=== PATIENT | male | born 1945 | race Caucasian/White ===

== ENCOUNTER 2019-05-18 14:21 | Emergency (ER) | payer MEDICARE, BC ==
[~2019-05-18] VITALS: Ht 172.7 cm; Wt 79.0 kg
[2019-05-18 15:15] LABS: BASOPHILS % (AUTO) 0.5 % (0-1); EOSINOPHILS # (AUTO) 0.1 X10'3 (0-0.9); EOSINOPHILS % (AUTO) 1.3 % (0-6); HEMOGLOBIN 16.5 g/dl (14.0-17.9); LYMPHOCYTES # (AUTO) 1.6 X10'3 (1.1-4.8); MEAN CORPUSCULAR HEMOGLOBIN 31.5 PG (27.0-31.0); MEAN CORPUSCULAR HGB CONC 34.4 g/dL (33.0-36.5); MEAN CORPUSCULAR VOLUME 91.4 FL (78-98); MONOCYTES # (AUTO) 1.3 X10'3 (0-0.9); MONOCYTES % (AUTO) 17.7 % (2-12); NEUTROPHILS # (AUTO) 4.2 X10'3 (1.8-7.7); NEUTROPHILS % (AUTO) 58.5 % (42-75); PLATELET COUNT 172 X10'3 (140-440); RED BLOOD COUNT 5.25 X10'6 (4.70-6.10); RED CELL DISTRIBUTION WIDTH 13.7 % (11.5-14.5); WHITE BLOOD COUNT 7.2 X10'3 (4.5-11.0)
[2019-05-18 15:32] LABS: ALANINE AMINOTRANSFERASE 25 U/L (12-78); ALBUMIN 4.1 G/DL (3.4-5.0); ALBUMIN/GLOBULIN RATIO 1.2 (1.1-1.5); ALKALINE PHOSPHATASE 52 IU/L (46-116); ANION GAP 12 (8-16); ASPARTATE AMINO TRANSFERASE 29 U/L (10-37); BILIRUBIN,TOTAL 1.5 MG/DL (0.1-1.0); BLOOD UREA NITROGEN 19 MG/DL (7-18); BUN/CREATININE RATIO 11.2 (5.4-32.0); CALCIUM 8.6 MG/DL (8.5-10.1); CHLORIDE 99 MMOL/L (99-107); GLUCOSE 105 MG/DL (70-104); MAGNESIUM 2.5 MG/DL (1.5-2.4); POTASSIUM 3.5 MMOL/L (3.5-5.1); SODIUM 135 MMOL/L (135-145); TOTAL CARBON DIOXIDE 23.8 MMOL/L (24-32); TOTAL PROTEIN 7.4 G/DL (6.4-8.2); eGFR 40 ML/MIN
[2019-05-18 16:18] LABS: CLARITY,URINE CLEAR (Clear); COLOR,URINE YELLOW (Yellow); GLUCOSE, URINE NEGATIVE (Neg); KETONES,URINE TRACE mg/dl (Neg); LEUKOCYTE ESTERASE ,URINE NEGATIVE (Neg); NITRITES, URINE NEGATIVE (Neg); OCCULT BLOOD,URINE NEGATIVE (Neg); PROTEIN,URINE TRACE mg/dl (Neg); UROBILINOGEN,URINE 0.2 E.U/dL (0.2-1.0)
[2019-05-18 16:33] LABS: UA COLLECTION TYPE CLN CATCH MIDSTREAM
[2019-05-18 16:34] LABS: BACTERIA,URINE NONE SEEN /HPF (Neg); MUCUS STRANDS FEW /LPF (Neg); RBC,URINE NONE SEEN /HPF (0-2); SQUAMOUS EPITHELIAL CELL,UR NONE SEEN /LPF (FEW); WBC,URINE NONE SEEN /HPF (0-4)
[2019-05-18 17:48] VITALS: BP 112/66
[2019-05-19] MEDS ORDERED: CYAN100070 PO (04:12)
[2019-05-19] MEDS ORDERED: MULT-1074 PO (04:12)
[2019-05-19] MEDS ORDERED: B1/B1TAB (04:12)
[2019-05-19] MEDS ORDERED: VALA100027 PO (04:12)
[2019-05-19] MEDS ORDERED: LEVO125T PO (14:05)
== END 2019-05-18 17:50 | disposition home or self-care (01) ==
LOC: ER 14:22
DX: E86.0 Dehydration (principal); R41.0 Disorientation, unspecified; L98.8 Other specified disorders of the skin and subcutaneous tissue; E07.9 Disorder of thyroid, unspecified
CPT/HCPCS: 36415; 70450; 71045; 80053; 81001; 83605; 83735; 84145; 85025; 87040; 93005; 99284

== ENCOUNTER 2019-05-19 01:33 | Inpatient (IN) | payer MEDICARE, BC ==
[~2019-05-19] VITALS: Ht 172.7 cm; Wt 81.8 kg
[2019-05-19 02:47] LABS: BASOPHILS % (AUTO) 0.5 % (0-1); EOSINOPHILS # (AUTO) 0.2 X10'3 (0-0.9); EOSINOPHILS % (AUTO) 2.2 % (0-6); HEMATOCRIT 46.4 % (42.0-52.0); HEMOGLOBIN 15.8 g/dl (14.0-17.9); LYMPHOCYTES # (AUTO) 1.3 X10'3 (1.1-4.8); LYMPHOCYTES % (AUTO) 18.2 % (21-51); MEAN CORPUSCULAR HEMOGLOBIN 31.4 PG (27.0-31.0); MEAN CORPUSCULAR VOLUME 92.3 FL (78-98); MONOCYTES # (AUTO) 1.1 X10'3 (0-0.9); MONOCYTES % (AUTO) 15.9 % (2-12); NEUTROPHILS # (AUTO) 4.4 X10'3 (1.8-7.7); NEUTROPHILS % (AUTO) 63.2 % (42-75); PLATELET COUNT 161 X10'3 (140-440); RED BLOOD COUNT 5.03 X10'6 (4.70-6.10); RED CELL DISTRIBUTION WIDTH 13.7 % (11.5-14.5); WHITE BLOOD COUNT 6.9 X10'3 (4.5-11.0)
--- NOTE | 2019-05-19 02:53 | NUR ---
PT DAUGHTER FANNYRACEHLCICI IN PT "SHINGLE MEDICATIONS" IN PLASTIC [place]AGGIE AND DOES NOT KNOW WHAT THE NAME IS. IDENTIFIED THE DRUG VALCYCLOVIR AND NOTIFIED AMNA RICH
[2019-05-19 03:05] LABS: ALANINE AMINOTRANSFERASE 24 U/L (12-78); ALBUMIN 4.1 G/DL (3.4-5.0); ALBUMIN/GLOBULIN RATIO 1.3 (1.1-1.5); ALKALINE PHOSPHATASE 51 IU/L (46-116); ANION GAP 11 (8-16); ASPARTATE AMINO TRANSFERASE 28 U/L (10-37); BILIRUBIN,TOTAL 1.4 MG/DL (0.1-1.0); BLOOD UREA NITROGEN 22 MG/DL (7-18); BUN/CREATININE RATIO 14.4 (5.4-32.0); C-REACTIVE PROTEIN 0.25 MG/DL (0.0-0.5); CALCIUM 8.3 MG/DL (8.5-10.1); CHLORIDE 100 MMOL/L (99-107); CREATININE 1.53 MG/DL (0.60-1.10); GLUCOSE 109 MG/DL (70-104); POTASSIUM 3.7 MMOL/L (3.5-5.1); SODIUM 135 MMOL/L (135-145); TOTAL CARBON DIOXIDE 24.2 MMOL/L (24-32); TOTAL PROTEIN 7.3 G/DL (6.4-8.2); eGFR 45 ML/MIN
[2019-05-19] MEDS ORDERED: acetaminophen 325mg tablet PO ONE (03:50)
[2019-05-19] MEDS ORDERED: VALA100027 PO (04:12)
[2019-05-19] MEDS ORDERED: MULT-1074 PO (04:12)
[2019-05-19] MEDS ORDERED: B1/B1TAB (04:12)
[2019-05-19] MEDS ORDERED: CYAN100070 PO (04:12)
[2019-05-19] MEDS ORDERED: methylPREDNISolone sod succ 125mg/2ml vial IV STA (04:38)
[2019-05-19] MEDS ORDERED: ondansetron/PF 4mg/2ml inj IV PRN (04:40)
[2019-05-19] MEDS ORDERED: acetaminophen 325mg tablet PO PRN ×2 (04:40)
[2019-05-19] MEDS ORDERED: HYDROcodone/acetaminophen 5mg/325mg tablet PO PRN (04:40)
[2019-05-19] MEDS ORDERED: magnesium Cl slow-release 64mg tablet PO PRN (04:40)
[2019-05-19] MEDS ORDERED: potassium CL 10mEq/100ml bag 100 ML IV PRN ×2 (04:40)
[2019-05-19] MEDS ORDERED: HYDROcodone/acetaminophen 10/325mg tab PO PRN (04:40)
[2019-05-19] MEDS ORDERED: mag hydrox/Alum hydrox/simeth 30ml oral suspension PO PRN (04:40)
[2019-05-19] MEDS ORDERED: magnesium hydroxide 30ml (MOM) UD suspension PO PRN (04:40)
[2019-05-19] MEDS ORDERED: magnesium 2GM in 50ml NS 50 ML IV PRN (04:40)
[2019-05-19] MEDS ORDERED: magnesium 4gm in 100ml NS 100 ML IV PRN (04:40)
[2019-05-19] MEDS ORDERED: morphine 2 MG/ML inj. syringe IV PRN ×2 (04:40)
[2019-05-19] MEDS ORDERED: potassium Cl 20 mEq SR tablet PO PRN ×2 (04:40)
[2019-05-19] MEDS ORDERED: methylPREDNISolone sod succ 1,000 MG in normal saline 100ml IV soln 100 ML IV ONE (05:05)
[2019-05-19] MEDS ORDERED: ACYCLOVIR IV SCH (05:15)
[2019-05-19] MEDS ORDERED: NORMAL SALINE IV SCH (05:15)
[2019-05-19] MEDS: CefTRIAXone 2gm/D5W 50ml 50 ML IV SCH ×2 (05:51→20:44)
[2019-05-19 05:57] LABS: GLUCOSE,CSF 53 MG/DL (40-75); TOTAL PROTEIN,CSF 167 MG/DL (30-60)
[2019-05-19 06:33] LABS: LYMPHOCYTES,CSF 63 % (40-80); MONOCYTES,CSF 37 % (15-45)
[2019-05-19 06:36] LABS: LYMPHOCYTES,CSF 65 % (40-80); MONOCYTES,CSF 34 % (15-45); NEUTRO,CSF 1 % (0-6)
[2019-05-19 06:38] LABS: APPEARANCE,CSF CLEAR; CSF SUPERNATANT COLOR XANTHOCHROMIC; CSF VOLUME 4 ML; TUBE# COUNTED 4
[2019-05-19 06:40] LABS: CSF RBC 5 /CU MM (0)
[2019-05-19 06:46] LABS: APPEARANCE,CSF CLEAR; CSF WBC CT 195 /CU MM (0-5)
[2019-05-19 06:47] LABS: CSF RBC 130 /CU MM (0); CSF SUPERNATANT COLOR XANTHOCHROMIC; CSF VOLUME 4 ML; CSF WBC CT 205 /CU MM (0-5); TUBE# COUNTED 1
[2019-05-19 07:30] VITALS: BP 145/79
[2019-05-19] MEDS ORDERED: methylPREDNISolone sod succ 125mg/2ml vial IV SCH (08:00)
[2019-05-19] MEDS: K and/or MAG REPLACEMENT MC SCH (08:00)
[2019-05-19] MEDS: ACYCLOVIR IV SCH ×2 (09:00→17:25)
[2019-05-19] MEDS: NORMAL SALINE IV SCH ×2 (09:00→17:25)
[2019-05-19] MEDS ORDERED: LORazepam 2 mg/ml vial IV PRN (12:10)
[2019-05-19] MEDS ORDERED: thiamine 100mg/ml 2ml inj. IV ONE (12:10)
[2019-05-19] MEDS ORDERED: LORazepam 1 MG tablet PO PRN (12:10)
--- NOTE | 2019-05-19 12:30 | NUR ---
Noted pt OOB in room with pajama pants off and legs tangled in SCD tubings. Dtr and son not in room at this time. Pt informed that he is leaving and does not plan to come back here to this hotel. Pt hallucinating by stating "There are so many babies going by my room that are strapped to boards." Pt in Negative Air Pressure Room on Contact and Airborne Precautions. Unable to move pt to closer room d/t diagnosis (R/O Mengititis). Spoke with Rose Mary optical engineering technician who called Dr. Lee for sitter order. Currently ELROY Pope sitting with pt in ante room at this time.
[2019-05-19] MEDS ORDERED: thiamine inj. 100 MG in normal saline 100ml IV soln 99 ML IV ONE (12:45)
[2019-05-19] MEDS ORDERED: LEVO125T PO (14:05)
[2019-05-19 18:30] VITALS: BP 144/85
[2019-05-19] MEDS ORDERED: lactobacillus rhamnosus 10,000 MMU CELLS/CAPSULE PO SCH (20:00)
--- NOTE | 2019-05-19 21:00 | NUR ---
PT'S PIV INFILTRATED. NO MEDS DUE TILL 0600.
[2019-05-19 23:00] VITALS: BP 139/93
[2019-05-20] MEDS ORDERED: haloperidol lactate 5mg/ml inj IM ONE (04:40)
--- NOTE | 2019-05-20 07:05 | NUR ---
Problems reprioritized. Patient report given, questions answered & plan of care reviewed with BENITO. Addendum: 05/20/19 at 0705 by Rodger Gallego RN Amended: Links added.
[2019-05-20] MEDS ORDERED: methylPREDNISolone sod succ 1,000 MG in normal saline 100ml IV soln 100 ML IV SCH (08:00)
[2019-05-20] MEDS: K and/or MAG REPLACEMENT MC SCH (08:00)
[2019-05-20] MEDS: enoxaparin 40mg/0.4ml syringe SQ SCH (08:00)
[2019-05-20 10:00] VITALS: BP 145/81
[2019-05-20] MEDS ORDERED: VALA100027 (10:00)
[2019-05-20] MEDS ORDERED: TESTOSTERONE CREAM TOP (10:13)
[2019-05-20] MEDS: levoTHYROXINE 125mcg tablet PO SCH (10:54)
[2019-05-20] MEDS: TESTOSTERONE CREAM TOP SCH (14:38)
[2019-05-20] MEDS ORDERED: ibuprofen 200mg tablet PO PRN (15:45)
[2019-05-20] MEDS ORDERED: acyclovir inj 1,000 MG in normal saline 250ml IV soln 230 ML IV SCH (16:00)
[2019-05-20 17:47] VITALS: BP 131/79
[2019-05-20 18:00] VITALS: BP 104/57
--- NOTE | 2019-05-20 18:15 | NUR ---
Patient in room ORTHO 4006. I have received report from BENITO ALBERTS and had the opportunity to ask questions and assume patient care. Addendum: 05/20/19 at 1955 by Daniella Gallegos RN Amended: Links added.
--- NOTE | 2019-05-20 19:10 | NUR ---
RESTING ON RIGHT SIDE EYES CLOSED AT THIS TIME. SITTER AT BEDSIDE DUE TO SEVERE CONFUSION YESTERDAY AND EARLY THIS AM
[2019-05-20] MEDS ORDERED: calamine LOTION TP PRN (20:40)
--- NOTE | 2019-05-20 20:40 | NUR ---
CALLED HOSPITALIST DR ELIZALDE AND NOTIFIED HIM OF PT ITCHING DUE TO SHINGLES THAT IT WAS DRY NO C/O BURNING AT THIS TIME AND ORDERED CALAMINE CREAM FOR THIS.
--- NOTE | 2019-05-20 21:45 | NUR ---
UPON RECEIVING CALAMINE CREAM APPLIED IT TO PT FOR HIS COMFORT TO AREAS HE STATED WAS ITCHING UNDER ARM PITS BILAT. CHEST ABD AND BACK. ASLO ON HIS ARMS. DENIED ANY ITCHING TO HIS LEGS SO NOT APPLIED THERE. PT ALERT AND ORIENTED TO PLACE AND SELF AND EVENTS SOME OF THEM NOW.
[2019-05-20 22:28] VITALS: BP 104/57
--- NOTE | 2019-05-20 23:05 | NUR ---
PT A/O AWAKE WATCHING TV NO S&S OF DISTRESS AT THIS TIME.
--- NOTE | 2019-05-21 01:00 | NUR ---
pt on right side resting without changes. sitter at the bedside.
--- NOTE | 2019-05-21 03:00 | NUR ---
pt resting eyes closed no s&s of distress at this time.
[2019-05-21 05:00] VITALS: BP 104/60
--- NOTE | 2019-05-21 05:00 | NUR ---
pt resting eyes closed without changes. appears comfortable.
[2019-05-21 05:57] LABS: ALBUMIN 3.5 G/DL (3.4-5.0); ANION GAP 9 (8-16); BLOOD UREA NITROGEN 22 MG/DL (7-18); BUN/CREATININE RATIO 21.2 (5.4-32.0); CALCIUM 8.2 MG/DL (8.5-10.1); CHLORIDE 103 MMOL/L (99-107); CREATININE 1.04 MG/DL (0.60-1.10); GLUCOSE 94 MG/DL (70-104); MAGNESIUM 2.4 MG/DL (1.5-2.4); POTASSIUM 3.7 MMOL/L (3.5-5.1); SODIUM 137 MMOL/L (135-145); TOTAL CARBON DIOXIDE 25.2 MMOL/L (24-32); eGFR 70 ML/MIN
[2019-05-21 06:07] LABS: BASOPHILS # (AUTO) 0.1 X10'3 (0-0.2); BASOPHILS % (AUTO) 0.8 % (0-1); EOSINOPHILS # (AUTO) 0.1 X10'3 (0-0.9); EOSINOPHILS % (AUTO) 1.6 % (0-6); HEMATOCRIT 45.4 % (42.0-52.0); HEMOGLOBIN 15.5 g/dl (14.0-17.9); LYMPHOCYTES # (AUTO) 2.5 X10'3 (1.1-4.8); LYMPHOCYTES % (AUTO) 32.1 % (21-51); MEAN CORPUSCULAR HEMOGLOBIN 31.2 PG (27.0-31.0); MEAN CORPUSCULAR HGB CONC 34.1 g/dL (33.0-36.5); MEAN CORPUSCULAR VOLUME 91.5 FL (78-98); MEAN PLATELET VOLUME 8.6 FL (7.4-10.4); MONOCYTES # (AUTO) 0.9 X10'3 (0-0.9); MONOCYTES % (AUTO) 10.9 % (2-12); NEUTROPHILS # (AUTO) 4.3 X10'3 (1.8-7.7); NEUTROPHILS % (AUTO) 54.6 % (42-75); PLATELET COUNT 199 X10'3 (140-440); RED BLOOD COUNT 4.96 X10'6 (4.70-6.10); RED CELL DISTRIBUTION WIDTH 13.7 % (11.5-14.5); WHITE BLOOD COUNT 7.9 X10'3 (4.5-11.0)
--- NOTE | 2019-05-21 06:46 | NUR ---
Problems reprioritized. Patient report given, questions answered & plan of care reviewed with Kalyn Benitez. Addendum: 05/21/19 at 0647 by Daniella Gallegos RN Amended: Links added.
[2019-05-21] MEDS: enoxaparin 40mg/0.4ml syringe SQ SCH (08:00)
[2019-05-21] MEDS: K and/or MAG REPLACEMENT MC SCH (08:00)
[2019-05-21] MEDS: levoTHYROXINE 125mcg tablet PO SCH (08:11)
[2019-05-21] MEDS: TESTOSTERONE CREAM TOP SCH (08:26)
[2019-05-21 10:00] VITALS: BP 121/69
[2019-05-21] MEDS ORDERED: LEVO150T8 PO (10:03)
--- NOTE | 2019-05-21 11:10 | NUR ---
Received discharge orders from Dr. Niko Shah. RX for Levothyroxine called to [facility] per pts daughter Margaret. Reviewed discharge instructions with pt & Margaret (dtr). Discharged via ambulation to private vehicle with daughter driving pt to his home now.
[2019-05-23 05:20] LABS: HSV 1 PCR Negative (Negative); HSV 2 PCR Negative (Negative)
== END 2019-05-21 11:00 | disposition home or self-care (01) | DRG 75 ==
LOC: ER 01:34 → ORTHO 4S 07:10 → CMPBEDREQ 05-20 19:34
PROVIDERS: ADMIT Hospitalist; ATTEND Family Medicine
PROC: 009U3ZX Drainage of Spinal Canal, Percutaneous Approach, Diagnostic (ICD-10-PCS; principal; 2019-05-19)
DX: B02.1 Zoster meningitis (principal); G93.41 Metabolic encephalopathy; F05 Delirium due to known physiological condition; N17.9 Acute kidney failure, unspecified; G30.9 Alzheimer's disease, unspecified; M31.6 Other giant cell arteritis; F02.80 Dementia in other diseases classified elsewhere, unspecified severity, without behavioral disturbance, psychotic disturbance, mood disturbance, and anxiety; E03.9 Hypothyroidism, unspecified; L98.9 Disorder of the skin and subcutaneous tissue, unspecified; Z88.0 Allergy status to penicillin; Z79.899 Other long term (current) drug therapy
CPT/HCPCS: 36415; 62270; 70450; 70551; 71045; 80048; 80053; 81001; 82140; 82945; 83605; 83735; 84145; 84157; 84443; 85025; 85610; 86140; 87015; 87040; 87070; 87081; 87529; 89051; 93005; 96365; 97110; 97116; 97161; 99285; G0378; J0133; J0696; J1650; J2930; J3411; J7050

== ENCOUNTER 2021-09-27 05:58 | Day surgery (SDC) | payer MEDICARE ==
[2021-09-20 16:25] LABS: BASOPHILS % (AUTO) 0.7 % (0-1); EOSINOPHILS # (AUTO) 0.1 X10'3 (0-0.9); MEAN CORPUSCULAR HEMOGLOBIN 30.8 PG (27.0-31.0); MONOCYTES # (AUTO) 0.6 X10'3 (0-0.9); PRE OP HEMOGLOBIN 15.9 g/dL (14.0-17.9); RED BLOOD COUNT 5.18 X10'6 (4.70-6.10)
[2021-09-20 16:26] LABS: EOSINOPHILS % (AUTO) 2.1 % (0-6); LYMPHOCYTES % (AUTO) 32.5 % (21-51); MEAN CORPUSCULAR HGB CONC 34.2 g/dL (33.0-36.5); MEAN CORPUSCULAR VOLUME 89.9 FL (78-98); MEAN PLATELET VOLUME 9.1 FL (7.4-10.4); MONOCYTES % (AUTO) 10.7 % (2-12); NEUTROPHILS # (AUTO) 3.2 X10'3 (1.8-7.7); PRE OP HEMATOCRIT 46.6 % (42.0-52.0); PRE OP PLATELET COUNT 196 X10'3 (140-440); RED CELL DISTRIBUTION WIDTH 13.3 % (11.5-14.5)
[2021-09-20 16:34] LABS: ALBUMIN 3.9 G/DL (3.4-5.0); ALBUMIN/GLOBULIN RATIO 1.3 (1.1-1.5); ALKALINE PHOSPHATASE 88 IU/L (46-116); BLOOD UREA NITROGEN 17 MG/DL (7-18); BUN/CREATININE RATIO 14.4 (5.4-32.0); CALCIUM 8.8 MG/DL (8.5-10.1); CHLORIDE 109 MMOL/L (99-107); CREATININE 1.18 MG/DL (0.60-1.10); PRE OP ALT 46 U/L (30-65); PRE OP ANION GAP 8 (8-16); PRE OP AST 31 U/L (10-37); PRE OP BILIRUB, TOTAL 0.5 MG/DL (0.0-1.0); PRE OP GLUCOSE 131 MG/DL (70-104); PRE OP POTASSIUM 3.8 MMOL/L (3.4-5.1); PRE OP SODIUM 143 MMOL/L (135-145); TOTAL CARBON DIOXIDE 25.8 MMOL/L (24-32); eGFR 60 ML/MIN
[~2021-09-27] VITALS: Ht 172.7 cm; Wt 79.5 kg
[2021-09-27] VITALS (9 sets, daily range): BP systolic 115–136; BP diastolic 62–77
[~2021-09-27 05:58] MED LIST: DONE10TA7 PO; ESCI-8 PO; GABA300C PO; LEVO125T PO; MEMA28CA PO; MULT-1074 PO; VITAMIN B-100 PO; clindamycin-Cleocin 900mg/D5W 50 ML IV ONE; famotidine 20mg tablet PO ONE; ringers solution, lacted 1,000 ML IV SCH
[2021-09-27] MEDS ORDERED: BUPIVAcaine/PF 2.5mg/ml (0.25%) 10ml vial ONE (06:42)
[2021-09-27] MEDS ORDERED: morphine 4 MG/ML inj SYRINge IV PRN (07:55)
[2021-09-27] MEDS ORDERED: meperidine/PF 25mg/ml syringe IV PRN (07:55)
[2021-09-27] MEDS ORDERED: proCHLORperazine 10 MG/2 ml inj IV PRN (07:55)
[2021-09-27] MEDS ORDERED: hydrALAZINE 20mg/ml inj. IV PRN (07:55)
[2021-09-27] MEDS ORDERED: HYDROmorphone/PF 0.2 MG/ML SYRINGE IV PRN ×2 (07:55)
[2021-09-27] MEDS ORDERED: ringers solution, lacted 1,000 ML IV SCH (07:55)
[2021-09-27] MEDS ORDERED: morphine 2 MG/ML inj. syringe IV PRN (07:55)
[2021-09-27] MEDS ORDERED: ondansetron/PF 4mg/2ml inj IV PRN (07:55)
[2021-09-27] MEDS ORDERED: acetaminophen 1,000mg/100ml IV 100 ML IV PRN (07:55)
[2021-09-27] MEDS ORDERED: labetalol 20mg/4ml (5mg/ml) syringe IV PRN (07:55)
[2021-09-27] MEDS ORDERED: fentaNYL/PF 50MCG/1 ML 2ML syringe ONE (08:05)
[2021-09-27] MEDS ORDERED: LIDOcaine 0.5% (5mg/ml) 50ml vial ONE (08:22)
[2021-09-27] MEDS ORDERED: propofol inj 20 ML IV ONE (08:22)
--- NOTE | 2021-09-27 08:45 | NUR ---
Received from OR via [facility], accompanied by Anesthesiologist DR BLACKMON and report given by Anesthesiologist. PT DROWSY, DENIES PAIN. RIGHT HAND/WRIST W/BIAS DRSG COVERING CDI, FINGER TIPS SLIGHTY DUSKY, SENIOR POLICY ADVISOR 1-2 SECONDS, WILL CONTINUE TO MONITOR. Addendum: 09/27/21 at 0908 by Vika Arreaga RN Amended: Links added.
--- NOTE | 2021-09-27 10:15 | NUR ---
PT UP AND ABLE TO AMBULATE SAFELY, FINGERS ALL NOW PWD, RESEARCH LABORATORY MANAGER REMAINS 1-2 SECONDS, DUSKINESS NO LONGER REMAINS ON FINGERS. D/C INSTRUCTIONS GIVEN AND GONE OVER W/PT AND PTS DAUGHTER WHO VERBALIZED UNDERSTANDING. PT D/CD TO HOME VIA W/C TO PRIVATE VEHICLE W/O INCIDENT. Addendum: 09/27/21 at 1025 by Vika Arreaga RN Amended: Links added.
== END 2021-09-27 10:15 | disposition home or self-care (01) ==
LOC: PAS 05:58
PROVIDERS: ATTEND Orthopaedic Surgery Hand Surgery
DX: G56.01 Carpal tunnel syndrome, right upper limb (principal); M72.0 Palmar fascial fibromatosis [Dupuytren]; F41.9 Anxiety disorder, unspecified; F03.90 Unspecified dementia, unspecified severity, without behavioral disturbance, psychotic disturbance, mood disturbance, and anxiety; E03.9 Hypothyroidism, unspecified; J45.909 Unspecified asthma, uncomplicated; Z79.899 Other long term (current) drug therapy; Z20.822 Contact with and (suspected) exposure to COVID-19; Z98.890 Other specified postprocedural states
CPT/HCPCS: 26121; 36415; 64721; 80053; 82948; 85025; 93005; A6222; J2704; J3010; J3490; J7030; J7120; U0003; U0005; Z7506; Z7512; A4215; A4618; A6449; A7000